=== PATIENT | male | born 1960 | race Caucasian/White ===

== ENCOUNTER → 2018-01-06 | Outpatient (CLI) | payer OTHER ==
[~2018-01-06] MED LIST: ACETAMINOPHEN500 M1 PO; ALLEGRA ALLERG180 MG PO; HYDROCODONE-APA1 TA1 PO; IBUPROFEN 200200 M1 PO; IBUPROFEN 800800 M1 PO; MYSOLINE250 M1 PO; MYSOLINE50 MG PO; PHENOBARBITAL64.8 MG PO; PRILOSEC 20 MG20 MG PO; PRIMIDONE50 MG PO
== END ==
LOC: M.RAD 10:15
DX: M81.8 Other osteoporosis without current pathological fracture (principal); M85.80 Other specified disorders of bone density and structure, unspecified site; M25.869 Other specified joint disorders, unspecified knee; G89.29 Other chronic pain; G40.909 Epilepsy, unspecified, not intractable, without status epilepticus; E66.01 Morbid (severe) obesity due to excess calories

== ENCOUNTER 2019-02-27 15:33 | Emergency (ER) | payer OTHER ==
[~2019-02-27] VITALS: Ht 175.3 cm; Wt 144.2 kg
[2019-02-27] MEDS ORDERED: ACETAMINOPHEN-1 EAC1 PO (16:51)
[2019-02-27 17:10] VITALS: BP 160/80
== END 2019-02-27 17:10 | disposition home or self-care (01) ==
LOC: M.ERS 15:33
DX: S62.336A Displaced fracture of neck of fifth metacarpal bone, right hand, initial encounter for closed fracture (principal); W22.09XA Striking against other stationary object, initial encounter; Y93.89 Activity, other specified; Y92.89 Other specified places as the place of occurrence of the external cause; Y99.8 Other external cause status

== ENCOUNTER 2019-04-30 13:51 | Emergency (ER) | payer OTHER ==
[~2019-04-30] VITALS: Ht 175.3 cm; Wt 138.8 kg
[~2019-04-30 13:51] MED LIST changes: +ACETAMINOPHEN-1 EAC1 PO; +PHENOBARBITAL60 MG PO
[2019-04-30] MEDS ORDERED: PRIMIDONE 250M250 MG PO (14:04)
[2019-04-30] MEDS ORDERED: MOBIC15 MG PO (14:04)
[2019-04-30] MEDS ORDERED: ACTONEL150 MG PO (14:05)
[2019-04-30 16:35] VITALS: BP 122/42
== END 2019-04-30 16:36 | disposition home or self-care (01) ==
LOC: M.ERS 13:51
DX: M25.572 Pain in left ankle and joints of left foot (principal); M25.562 Pain in left knee; Z79.899 Other long term (current) drug therapy

== ENCOUNTER 2019-09-14 15:47 | Inpatient (IN) | payer OTHER ==
[~2019-09-14] VITALS: Ht 182.9 cm; Wt 134.7 kg
[~2019-09-14 15:47] MED LIST changes: +ACTONEL150 MG PO; +MOBIC15 MG PO; +PRIMIDONE 250M250 MG PO
[2019-09-14 15:53] VITALS: BP 174/80
[2019-09-14 16:10] LABS: ABSOLUTE LYMPHOCYTES 1.4 thou/uL (0.8-5.3); ABSOLUTE NEUTROPHILS 3.5 thou/uL (1.6-8.1); HEMOGLOBIN 16.3 gm/dL (14.0-18.0); PLATELET COUNT* 185 thou/uL (150-400); WBC 5.6 thou/uL (4.0-11.0)
[2019-09-14 16:12] LABS: ABSOLUTE EOSINOPHILS 0.1 thou/uL (0.0-0.7); ABSOLUTE MONOCYTES 0.5 thou/uL (0.0-1.2); BASOPHILS 0.9 %; EOSINOPHILS 2.3 %; HEMATOCRIT 47.5 % (42.0-52.0); LYMPHOCYTES 25.1 %; MCH 30.2 pg (26.0-34.0); MCHC 34.2 g/dL (28.0-37.0); MCV 88.2 fL (80.0-100.0); MONOCYTES 9.6 %; MPV 9.8 fl. (7.2-11.1); NUCLEATED RBCS 0 /100WBC; POLYS 62.1 %; RBC 5.38 mil/uL (4.50-6.00); RDW-CV 13.8 % (10.5-14.5)
[2019-09-14 16:19] LABS: CALCIUM 9.6 mg/dL (8.5-10.1); CREATININE 0.9 mg/dL (0.6-1.3); POTASSIUM 3.7 mmol/L (3.5-5.1)
[2019-09-14 16:21] LABS: APTT 27.4 Seconds (25.0-31.3); INR 1.1
[2019-09-14 16:38] LABS: ALBUMIN 3.9 g/dL (3.4-5.0); CK-MB MASS 0.5 ng/mL (<0.5-3.6); MAGNESIUM 1.7 mg/dL (1.8-2.4); TOTAL BILIRUBIN 0.3 mg/dL (<0.1-1.0); TOTAL PROTEIN 8.1 g/dL (6.4-8.2)
[2019-09-14 18:26] LABS: INFLUENZA A ANTIGEN Negative (Negative); INFLUENZA B ANTIGEN Negative (Negative)
[2019-09-14 19:09] VITALS: BP 126/54
[2019-09-14 19:45] VITALS: BP 128/46
[2019-09-14] MEDS ORDERED: DICYCLOMINE HCL20 MG PO (22:00)
[2019-09-14 23:55] VITALS: BP 126/41
[2019-09-15] VITALS (7 sets, daily range): BP systolic 116–140; BP diastolic 37–61
--- NOTE | 2019-09-15 01:03 | NUR ---
ASSUMED CARE OF PT AT 2020 FROM THE ER. PT IS ALERT AND ORIENTED. NO COMPLAINTS OF PAIN. UP WITH 1 ASSIST. PT IS IN SINUS RYTHM. CARDIZEM DISCONTINUED BECAUSE PTS HEART RATE IN THE 40'S. PT IS SLEEPING QUIETLY IN BED. RESPIRATIONS ARE EVEN AND NONLABORED. WILL CONTINUE TO MONITOR PT.
[2019-09-15 05:51] LABS: ANION GAP 9 mmol/L (7-16); BUN 16 mg/dL (7-18); CALCIUM 9.4 mg/dL (8.5-10.1); CHLORIDE 106 mmol/L (98-107); CHOLESTEROL 191 mg/dL (<200); CO2 25 mmol/L (21-32); CREATININE 0.8 mg/dL (0.6-1.3); GLUCOSE 97 mg/dL (70-99); HDL CHOLESTEROL 60 mg/dL (>40); LDL CHOLESTEROL 120 mg/dL (<100); MAGNESIUM 1.8 mg/dL (1.8-2.4); POTASSIUM 3.9 mmol/L (3.5-5.1); SODIUM 140 mmol/L (136-145); TC:HDL 3.2 Ratio (Not establshd); TRIGLYCERIDE 59 mg/dL (<150); VLDL 12 mg/dL (<40)
[2019-09-15 05:57] LABS: SERUM ASSESSMENT Clear
--- NOTE | 2019-09-15 07:49 | EKG ---
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 09/15/19 0748 155 155 Florentin Wilkes MD, FACC /EPI
--- NOTE | 2019-09-15 10:59 | NUR ---
ASSUMED PT CARE AT 0800, AOX4, UP SBA, O2 SAT 90'S RA. TRACING SINUS RHYTHM/ JUWAN ON TELE. PT HAS CARDIOLOGY CONSULT. PT DENIES PAIN. PT HAVING LOOSE STOOL. PT ON IV FLUIDS. VSS, AM ASSESSMENT CHARTED, CALL LIGHT WITHIN REACH, HOURLY ROUNDING, WILL CONTINUE TO MONITOR.
[2019-09-16 00:30] VITALS: BP 128/46
[2019-09-16 04:00] VITALS: BP 122/44
[2019-09-16 04:57] LABS: CALCIUM 9.3 mg/dL (8.5-10.1); CREATININE 0.9 mg/dL (0.6-1.3); MAGNESIUM 1.8 mg/dL (1.8-2.4); POTASSIUM 3.8 mmol/L (3.5-5.1)
--- NOTE | 2019-09-16 06:21 | NUR ---
PATIENT PROGRESSING TOWARDS GOALS: PATIENT REMAINS IN SR/SB THROUGHOUT SHIFT. DENIES PAIN AND DISCOMFORT. ANITICIPATING DISCHARGE HOME TODAY. CALL LIGHT WITHIN REACH
[2019-09-16 07:30] VITALS: BP 120/50
[2019-09-16] MEDS ORDERED: FLECAINIDE ACET50 M1 PO (09:11)
[2019-09-16 10:03] VITALS: BP 133/41
--- NOTE | 2019-09-16 10:26 | NUR ---
ASSUMED PT CARE AT 0800, AOX4, UP SBA, O2 SAT 90'S RA. TRACING SINUS RHYTHM ON TELE. PT DENIES PAIN. PT FOR DISCHARGE. CARDIOLOGY OK FOR DC. PT VSS, AM ASSESSMENT CHARTED, MEDS GIVEN PER MAR, WILL CONTINUE TO MONITOR.
[2019-09-16] MEDS ORDERED: ASPIRIN325 PO (10:47)
--- NOTE | 2019-09-16 11:47 | NUR ---
DISCHARGED PLAN DISCUSSED WITH THE PT AND BROTHER. MEDICATION PACKET/SCRIPT GIVEN. REMINDED TO FOLLOW UP PCP, CARDIOLOGY. IV, TELE REMOVED. LEFT THE UNIT AT 1142 VIA WHEELCHAIR.
--- NOTE | 2019-09-16 13:35 | CON ---
[address] [address] CONSULTATION Name: MICHELET FRANCE Room: [address] IN ..#: [id number] Admission: 09/14/19 Attend Phys: Redd Villa MD Discharge: 09/16/19 Date of : 56 Report #: [id number] THIS REPORT FOR: //name// CC: Redd NOYOLA DO Joycelyn Noyola DATE OF SERVICE: 09/15/2019 CARDIOLOGY CONSULTATION HISTORY OF PRESENT ILLNESS: The patient is a 59-year-old white male who I was asked to see in the hospital today after he was noted to have an abnormal EKG. The patient is single and lives with a brother. Recently, he has had loose stools. He went to see his primary care physician yesterday and was noted to be in atrial fibrillation. He was sent over to [place]. He was placed on IV Cardizem. He converted to sinus rhythm. I was asked to see him for further evaluation and treatment. He did note a rapid heartbeat, some shortness of breath and lightheadedness. PAST MEDICAL HISTORY: Otherwise, he has had a history of encephalitis with seizures. He has had a cholecystectomy. He is mentally handicapped. MEDICATIONS: Include primidone, Mobic and Actonel. ALLERGIES: He has no known drug allergies. SOCIAL HISTORY: Nonsmoker, nondrinker. REVIEW OF SYSTEMS: He has a history of asthma. No history of stroke. No history of GI bleeding. No kidney disease. No cancer. PHYSICAL EXAMINATION: GENERAL: Revealed a large male, lying in bed, appeared in no distress. VITAL SIGNS: He had a blood pressure of 150/60, pulse is 50. He is afebrile. HEENT: He was anicteric. Conjunctivae pink. Mucous membranes are moist. CHEST: Clear to auscultation. CARDIOVASCULAR: Regular rate and rhythm. ABDOMEN: Obese. EXTREMITIES: Had no edema. SKIN: Cool and dry. NEUROLOGIC: Nonfocal. RADIOLOGICAL DATA: His ECG on admission showed what appeared to represent an atrial flutter with a right bundle branch block. Currently, his ECG shows a sinus bradycardia. His workup in the [place] [address] CONSULTATION Name: MICHELET FRANCE Room: [address]#: [id number] Admission: 09/14/19 Attend Phys: Redd Villa MD Discharge: 09/16/19 Date of : 56 Report #: [id number] cardiomegaly, mild vascular prominence. LABORATORY DATA: Sodium 140, creatinine 0.8. Liver function studies were normal. Troponin 0.06. TSH 1.8. White blood cell count 5.6 and hemoglobin 16.3. IMPRESSION AND RECOMMENDATIONS: 1. Atrial flutter. After the patient converted, he was noted to be bradycardic. I would not recommend beta pamela. At this time, I would start the patient on flecainide. I would recommend an echocardiogram. 2. History of seizures. 3. Previous history of encephalitis. 4. Obesity. 5. Mentally handicapped. <ELECTRONICALLY SIGNED> By: Florentin Wilkes MD, FACC 09/16/19 1335 0713 0746Daolivia Wilkes MD, FACC /nt
== END 2019-09-16 11:42 | disposition home or self-care (01) | DRG 309 ==
LOC: M.ERS 15:47 → M.TBA-ER 16:35 → M.2W 16:35
PROVIDERS: Family Medicine; ADMIT Internal Medicine
PROC: 5A2204Z Restoration of Cardiac Rhythm, Single (ICD-10-PCS; principal; 2019-09-16)
DX: I48.20 Chronic atrial fibrillation, unspecified (principal); Z68.41 Body mass index [BMI] 40.0-44.9, adult; B34.9 Viral infection, unspecified; I48.92 Unspecified atrial flutter; E66.01 Morbid (severe) obesity due to excess calories; M81.0 Age-related osteoporosis without current pathological fracture; E87.6 Hypokalemia; E83.42 Hypomagnesemia; G40.909 Epilepsy, unspecified, not intractable, without status epilepticus; F79 Unspecified intellectual disabilities; I34.0 Nonrheumatic mitral (valve) insufficiency; E86.9 Volume depletion, unspecified; Z79.899 Other long term (current) drug therapy; Z90.49 Acquired absence of other specified parts of digestive tract

== ENCOUNTER 2020-05-29 16:56 | Emergency (ER) | payer MEDICARE ==
[~2020-05-29] VITALS: Ht 175.3 cm; Wt 134.3 kg
[~2020-05-29 16:56] MED LIST changes: +ASPIRIN325 PO; +DICYCLOMINE HCL20 MG PO; +FLECAINIDE ACET50 M1 PO
[2020-05-29 18:27] LABS: HEMATOCRIT 43.5 % (42.0-52.0); MCH 30.9 pg (26.0-34.0); MCHC 34.6 g/dL (28.0-37.0); MCV 89.3 fL (80.0-100.0); MPV 9.1 fl. (7.2-11.1); NUCLEATED RBCS 0 /100WBC; PLATELET COUNT* 175 thou/uL (150-400); RBC 4.87 mil/uL (4.50-6.00); WBC 9.7 thou/uL (4.0-11.0)
[2020-05-29 18:28] LABS: CALCIUM 9.3 mg/dL (8.5-10.1); CREATININE 0.9 mg/dL (0.6-1.3); POTASSIUM 4.2 mmol/L (3.5-5.1)
[2020-05-29 18:41] LABS: ALBUMIN 3.7 g/dL (3.4-5.0); TOTAL BILIRUBIN 1.2 mg/dL (<0.1-1.0); TOTAL PROTEIN 7.5 g/dL (6.4-8.2)
[2020-05-29 19:27] LABS: ABSOLUTE MONOCYTES 0.9 thou/uL (0.0-1.2); ABSOLUTE NEUTROPHILS 7.9 thou/uL (1.6-8.1)
[2020-05-29 19:30] LABS: PLATELET ESTIMATE ADEQUATE
[2020-05-29 19:51] LABS: URINE BLOOD TRACE (Negative); URINE CLARITY CLEAR; URINE COLOR YELLOW; URINE GLUCOSE-RANDOM NEGATIVE (Negative); URINE KETONES 2+ (Negative); URINE LEUKOCYTES-REFLEX NEGATIVE (Negative); URINE NITRITE-REFLEX NEGATIVE (Negative); URINE PROTEIN TRACE (Negative); URINE SPECIFIC GRAVITY >= 1.030 (1.005-1.030); URINE UROBILINOGEN 0.2 E.U./dl (0.2-1.0)
[2020-05-29 19:54] LABS: ICTOTEST (BILI CONFIRMATORY) Negative (Negative); URINE BILIRUBIN 1+ (Negative)
[2020-05-29 20:40] VITALS: BP 115/89
--- NOTE | 2020-05-30 14:02 | EKG ---
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 : 1960 Requested By: Nikky Herrmann Order Number: [id number] MD: Michelet Ventura Measurements Intervals [place] Rate: 65 P: 42 IA: 179 QRS: -5 QRSD: 131 T: 31 QT: 398 QTc: 414 Interpretive Statements Sinus rhythm Ventricular trigeminy LAE, consider biatrial enlargement Right bundle branch block Left ventricular hypertrophy Artifact in lead(s) I,II,III,aVR,aVL,aVF and baseline wander in lead(s) V1 Compared to ECG 09/14/2019 15:52:37 Ventricular premature complex(es) now present Right bundle-branch block now present Atrial flutter no longer present Electronically Signed On 05-30-2020 14:02:36 CDT by Michelet Ventura [email or web address] <ELECTRONICALLY SIGNED> By: Michelet Ventura MD, [facility] 05/30/20 1402 29 29 Michelet Ventura MD, [facility] /EPI
== END 2020-05-29 21:02 | disposition home or self-care (01) ==
LOC: M.ERS 16:56
PROVIDERS: Nurse Practitioner Family
DX: S93.491A Sprain of other ligament of right ankle, initial encounter (principal); I10 Essential (primary) hypertension; Z90.49 Acquired absence of other specified parts of digestive tract; W18.39XA Other fall on same level, initial encounter; Y93.89 Activity, other specified; Y92.89 Other specified places as the place of occurrence of the external cause; Y99.8 Other external cause status

== ENCOUNTER 2020-06-06 09:26 | Observation (INO) | payer MEDICARE ==
[~2020-06-06] VITALS: Ht 175.3 cm; Wt 134.3 kg
[2020-06-06 09:29] VITALS: BP 143/58
[2020-06-06 10:26] LABS: ABSOLUTE BASOPHILS 0.1 thou/uL (0.0-0.2); ABSOLUTE EOSINOPHILS 0.2 thou/uL (0.0-0.7); ABSOLUTE LYMPHOCYTES 1.5 thou/uL (0.8-5.3); ABSOLUTE MONOCYTES 0.5 thou/uL (0.0-1.2); ABSOLUTE NEUTROPHILS 3.5 thou/uL (1.6-8.1); EOSINOPHILS 3.3 %; HEMATOCRIT 45.1 % (42.0-52.0); HEMOGLOBIN 15.2 gm/dL (14.0-18.0); LYMPHOCYTES 26.1 %; MCH 30.5 pg (26.0-34.0); MCHC 33.7 g/dL (28.0-37.0); MCV 90.5 fL (80.0-100.0); MONOCYTES 8.3 %; MPV 10.2 fl. (7.2-11.1); NUCLEATED RBCS 0 /100WBC; PLATELET COUNT* 191 thou/uL (150-400); POLYS 61.3 %; RBC 4.98 mil/uL (4.50-6.00); RDW-CV 14.2 % (10.5-14.5); WBC 5.7 thou/uL (4.0-11.0)
[2020-06-06 10:33] LABS: URINE BILIRUBIN NEGATIVE (Negative); URINE BLOOD NEGATIVE (Negative); URINE CLARITY CLEAR; URINE COLOR YELLOW; URINE GLUCOSE-RANDOM NEGATIVE (Negative); URINE KETONES NEGATIVE (Negative); URINE LEUKOCYTES-REFLEX NEGATIVE (Negative); URINE NITRITE-REFLEX NEGATIVE (Negative); URINE PROTEIN NEGATIVE (Negative); URINE SPECIFIC GRAVITY >= 1.030 (1.005-1.030); URINE UROBILINOGEN 0.2 E.U./dl (0.2-1.0)
[2020-06-06 10:35] LABS: CALCIUM 9.5 mg/dL (8.5-10.1); CREATININE 1.1 mg/dL (0.6-1.3)
[2020-06-06 10:36] LABS: APTT 24.3 Seconds (25.0-31.3); PROTIME 10.8 Seconds (9.20-11.50)
[2020-06-06 10:46] LABS: ALBUMIN 3.6 g/dL (3.4-5.0); TOTAL BILIRUBIN 0.3 mg/dL (<0.1-1.0); TOTAL PROTEIN 7.7 g/dL (6.4-8.2)
[2020-06-06 12:45] VITALS: BP 153/66
--- NOTE | 2020-06-06 16:14 | EKG ---
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 : 1960 Requested By: Norman Ortiz Order Number: [id number] MD: Jasvir Gardner Measurements Intervals [place] Rate: 54 P: 52 ME: 206 QRS: 10 QRSD: 126 T: 55 QT: 443 QTc: 420 Interpretive Statements Sinus rhythm Right bundle branch block Minimal ST elevation, inferior leads Compared to ECG 05/29/2020 18:30:33 ST (T wave) deviation now present Ventricular premature complex(es) no longer present Left ventricular hypertrophy no longer present Electronically Signed On 06-06-2020 16:14:40 CDT by Jasvir Gardner [email or web address] <ELECTRONICALLY SIGNED> By: Jasvir Gardner MD, FACC 06/06/20 1614 0943 0943 Jasvir Gardner MD, [facility] /EPI
--- NOTE | 2020-06-06 16:15 | EKG ---
[place] [address] ELECTROCARDIOGRAM REPORT Name: MICHELET FRANCE Room: [address] M.R.#: [id number] Admission: 06/06/20 Attend Phys: Brian Posada Discharge: Date of : 56 Date of Service: 06/06/20 0944 Report #: [id number] THIS REPORT FOR: //name// [facility] ED Test Date: 2020-06-06 Test Time: 09:44:27 Pat Name: MICHELET FRANCE Department: Room: [address] Gender: M Collections Attorney: KRISTIN : 1960 Requested By: Norman Ortiz Order Number: [id number] MD: Jasvir Gardner Measurements Intervals [place] Rate: 56 P: 49 UT: 195 QRS: 8 QRSD: 130 T: 55 QT: 436 QTc: 421 Interpretive Statements Sinus rhythm Right bundle branch block Minimal ST elevation, inferior leads Compared to ECG 06/06/2020 09:43:36 ST (T wave) deviation still present Electronically Signed On 06-06-2020 16:14:58 CDT by Jasvir Gardner [email or web address] <ELECTRONICALLY SIGNED> By: Jasvir Gardner MD, FACC 06/06/20 1614 0944 0944 Jasvir Gardner MD, [facility] /EPI
--- NOTE | 2020-06-06 16:43 | NUR ---
PT.ADMITTED TODAY WITH INCREASED WEAKNESS FOR ABOUT A WEEK. HE HAS A DEVELOPMENTAL DISABILITY. BROTHER,KEMAL, IS HIS GUARDIAN AND LIVES WITH HIM. NO USE OF DME. 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
[2020-06-06 16:58] VITALS: BP 145/68
--- NOTE | 2020-06-06 17:24 | NUR ---
PATIENT ARRIVED TO UNIT FROM ED AT APPROX 1300. ALERT AND OREINTED. VSS ON ROOM AIR. COMPLAINT OF PAIN RESOLVED PRIOR TO ARRIVAL TO UNIT, NO NEW COMPLAINT OF PAIN SINCE ARRIVAL. FLUIDS INFUSED ORDERED. FALL PRECAUTIONS IN PLACE. CALL LIGHT WITHIN REACH. WILL CONTINUE PLAN OF CARE.
[2020-06-06 20:33] VITALS: BP 137/49
[2020-06-07 04:01] LABS: ABSOLUTE BASOPHILS 0.1 thou/uL (0.0-0.2); ABSOLUTE EOSINOPHILS 0.2 thou/uL (0.0-0.7); ABSOLUTE LYMPHOCYTES 1.6 thou/uL (0.8-5.3); ABSOLUTE MONOCYTES 0.5 thou/uL (0.0-1.2); ABSOLUTE NEUTROPHILS 2.8 thou/uL (1.6-8.1); EOSINOPHILS 4.4 %; HEMATOCRIT 40.8 % (42.0-52.0); HEMOGLOBIN 13.6 gm/dL (14.0-18.0); LYMPHOCYTES 30.2 %; MCH 30.1 pg (26.0-34.0); MCHC 33.5 g/dL (28.0-37.0); MONOCYTES 9.6 %; MPV 10.1 fl. (7.2-11.1); NUCLEATED RBCS 0 /100WBC; PLATELET COUNT* 196 thou/uL (150-400); POLYS 54.8 %; RBC 4.53 mil/uL (4.50-6.00); RDW-CV 14.2 % (10.5-14.5); WBC 5.2 thou/uL (4.0-11.0)
[2020-06-07 04:13] LABS: CALCIUM 8.8 mg/dL (8.5-10.1); CREATININE 1.1 mg/dL (0.6-1.3)
--- NOTE | 2020-06-07 04:59 | NUR ---
PATIENT ALERT AND ORIENTED. USES URINAL AT NIGHT. ON ROOM AIR. RIGHT FOOT ELEVATED. PAIN MANAGED 01/17. 1 TAB NORCO TAKEN. ABD SERIES COMPLETED. NORMAL SALINE @ 75 AND RECEIVED ALL MEDS SCHEDULED. WILL CONTINUE TO FOLLOW PLAN OF CARE.
[2020-06-07 08:13] VITALS: BP 183/69
[2020-06-07 16:00] VITALS: BP 166/64
--- NOTE | 2020-06-07 17:54 | NUR ---
PATIENT ALERT AND OREINTED. VSS ON ROOM AIR. VSSON ROOM AIR. COMPLAINT OF PAIN ADDRESSED WITH IV FENTANYL AND ORAL NORCO. FLUIDS INFUSED ORDERED. PATIENT SEEN BY THERAPIES TODAY FOR EVAL. UP WITH ASSIST TO BEDSIDE COMMODE. NO OTHER COMPLEINTS THIS SHIFT. FALL PRECAUTIONS IN PLACE. CALL LIGHT IN REACH. WILL CONTINUE PLAN OF CARE.
[2020-06-07 19:23] VITALS: BP 143/52
[2020-06-08 03:36] LABS: ABSOLUTE BASOPHILS 0.1 thou/uL (0.0-0.2); ABSOLUTE EOSINOPHILS 0.3 thou/uL (0.0-0.7); ABSOLUTE LYMPHOCYTES 2.1 thou/uL (0.8-5.3); ABSOLUTE MONOCYTES 0.5 thou/uL (0.0-1.2); ABSOLUTE NEUTROPHILS 2.8 thou/uL (1.6-8.1); BASOPHILS 1.1 %; EOSINOPHILS 4.4 %; HEMATOCRIT 39.3 % (42.0-52.0); HEMOGLOBIN 13.4 gm/dL (14.0-18.0); LYMPHOCYTES 36.9 %; MCH 30.5 pg (26.0-34.0); MCV 89.6 fL (80.0-100.0); MONOCYTES 9.5 %; MPV 10.2 fl. (7.2-11.1); NUCLEATED RBCS 0 /100WBC; PLATELET COUNT* 191 thou/uL (150-400); POLYS 48.1 %; RBC 4.39 mil/uL (4.50-6.00); RDW-CV 14.2 % (10.5-14.5); WBC 5.8 thou/uL (4.0-11.0)
[2020-06-08 03:53] LABS: CALCIUM 8.6 mg/dL (8.5-10.1); POTASSIUM 4.3 mmol/L (3.5-5.1)
--- NOTE | 2020-06-08 04:19 | NUR ---
PT USES URINAL AT BED. DID NOT GET UP THIS SHIFT. PAIN WAS INCREASED THIS EVENING, RECEIVED NORCO AND TYLENOL FOR PAIN. NORCO 0315 AND TYLENOL 0415. HE DID NOT WANT TO MOVE IN BED TRIED TO REPOSITION FOR COMFORT. HE IS ALERT AND ORIENTED ON ROOM AIR. HE WAS ABLE TO SLEEP MOST OF THE NIGHT. KEPT RIGHT FOOT ELEVATED. WILL CONTINUE TO MONITOR.
[2020-06-08 07:50] VITALS: BP 151/56
[2020-06-08] MEDS ORDERED: NORCO 5-325 TA1 EAC2 PO (10:09)
[2020-06-08 11:39] VITALS: BP 151/56
--- NOTE | 2020-06-08 14:33 | NUR ---
PATIENT ALERT AND ORIENTED X4. VSS ON ROOM AIR. COMPLAINT OF PAIN MANAGED WITH ORAL NORCO. PATIENT DISCHARGED AT 1415 WITH ALL PERSONAL BELONGINGS, PRESCRIPTION AND DICHARGE INFORMATION. PATIENTS BROTHER PICKED HIM UP A PICKUP TRUCK, PATIENT REQUIRED MAX ASSIST TO LIFT UP AND INTO THE TRUCK.
== END 2020-06-08 14:15 | disposition home or self-care (01) ==
LOC: M.ERS 09:26 → M.TBA-ER 11:03 → M.ORTHSURG 13:23
PROVIDERS: Family Medicine; ADMIT Internal Medicine; ATTEND Internal Medicine
DX: S92.331A Displaced fracture of third metatarsal bone, right foot, initial encounter for closed fracture (principal); S92.341A Displaced fracture of fourth metatarsal bone, right foot, initial encounter for closed fracture; M17.0 Bilateral primary osteoarthritis of knee; E66.01 Morbid (severe) obesity due to excess calories; N17.9 Acute kidney failure, unspecified; G40.909 Epilepsy, unspecified, not intractable, without status epilepticus; K56.50 Intestinal adhesions [bands], unspecified as to partial versus complete obstruction; R53.1 Weakness; E86.0 Dehydration; I10 Essential (primary) hypertension; M81.0 Age-related osteoporosis without current pathological fracture; R00.1 Bradycardia, unspecified; G93.40 Encephalopathy, unspecified; Z68.41 Body mass index [BMI] 40.0-44.9, adult; Z79.82 Long term (current) use of aspirin; Z79.899 Other long term (current) drug therapy; Z20.828 Contact with and (suspected) exposure to other viral communicable diseases; W19.XXXA Unspecified fall, initial encounter; Y93.89 Activity, other specified; Y92.89 Other specified places as the place of occurrence of the external cause

== ENCOUNTER 2020-07-21 12:49 | Emergency (ER) | payer MEDICARE ==
[~2020-07-21] VITALS: Ht 182.9 cm; Wt 117.0 kg
[~2020-07-21 12:49] MED LIST changes: +NORCO 5-325 TA1 EAC2 PO
[2020-07-21 15:12] VITALS: BP 111/48
== END 2020-07-21 15:16 | disposition home or self-care (01) ==
LOC: M.ERS 12:49
DX: S86.912A Strain of unspecified muscle(s) and tendon(s) at lower leg level, left leg, initial encounter (principal); M25.561 Pain in right knee; E66.01 Morbid (severe) obesity due to excess calories; I10 Essential (primary) hypertension; M81.0 Age-related osteoporosis without current pathological fracture; M19.90 Unspecified osteoarthritis, unspecified site; Z79.899 Other long term (current) drug therapy; Z79.82 Long term (current) use of aspirin; Z90.49 Acquired absence of other specified parts of digestive tract; X58.XXXA Exposure to other specified factors, initial encounter; Y93.89 Activity, other specified; Y92.89 Other specified places as the place of occurrence of the external cause; Y99.8 Other external cause status

== ENCOUNTER 2021-01-15 14:05 | Emergency (ER) | payer MEDICARE ==
[~2021-01-15] VITALS: Ht 182.9 cm; Wt 126.5 kg
[2021-01-15 15:31] VITALS: BP 146/64
== END 2021-01-15 15:33 | disposition home or self-care (01) ==
LOC: M.ERS 14:05
DX: S93.402A Sprain of unspecified ligament of left ankle, initial encounter (principal); M79.675 Pain in left toe(s); I10 Essential (primary) hypertension; Z81.0 Family history of intellectual disabilities; Z90.49 Acquired absence of other specified parts of digestive tract; Z98.890 Other specified postprocedural states; Z79.899 Other long term (current) drug therapy; Z79.82 Long term (current) use of aspirin; X50.1XXA Overexertion from prolonged static or awkward postures, initial encounter; Y93.89 Activity, other specified; Y92.89 Other specified places as the place of occurrence of the external cause; Y99.8 Other external cause status

== ENCOUNTER → 2021-08-13 | Outpatient (CLI) | payer MEDICARE ==
[2021-08-13] VITALS (11 sets, daily range): BP systolic 81–143; BP diastolic 40–84
[~2021-08-13] MED LIST changes: +D3-501250 MCG PO; +FLECAINIDE ACE150 MG PO; +FOSAMAX 70 MG T70 MG PO; +TOPROL XL25 MG PO
[2021-08-13 11:42] LABS: HEMATOCRIT 41.7 % (42.0-52.0); HEMOGLOBIN 13.9 gm/dL (14.0-18.0); MCH 29.6 pg (26.0-34.0); MCHC 33.3 g/dL (28.0-37.0); MCV 88.9 fL (80.0-100.0); MPV 8.8 fl. (7.2-11.1); RBC 4.69 mil/uL (4.50-6.00); RDW-CV 14.4 % (10.5-14.5); WBC 4.9 thou/uL (4.0-11.0)
[2021-08-13 11:49] LABS: APTT 26.8 Seconds (25.0-31.3); INR 1.1; PROTIME 10.9 Seconds (9.20-11.50)
[2021-08-13 11:51] LABS: ALBUMIN 3.2 g/dL (3.4-5.0); CALCIUM 9.2 mg/dL (8.5-10.1); CREATININE 1.1 mg/dL (0.6-1.3); POTASSIUM 4.3 mmol/L (3.5-5.1); TOTAL BILIRUBIN 0.4 mg/dL (<0.1-1.0); TOTAL PROTEIN 6.8 g/dL (6.4-8.2)
--- NOTE | 2021-08-13 13:36 | TEE ---
[place] [address] TRANSESOPHAGEAL ECHOCARDIOGRAM Name: MICHELET FRANCE Room: [facility]#: [id number] Admission: 08/13/21 Attend Phys: Regina Canas RN Discharge: Date of : 56 Date of Service: 08/13/21 1336 Report #: [id number] THIS REPORT FOR: cc: Joycelyn Mathew Linda J. DO Holkins, John M. MD [facility] ~ APPROVED REPORT Study performed: 08/13/2021 12:06:29 EXAM: Transesophageal Echocardiogram Patient Location: Out-Patient Room #: CL Status: routine HR: 83 bpm BP: 109/57 mmHg Rhythm: Atrial Fibrillation Indications Atrial Fibrillation Echo Enhancing Agent Indication: Rule out Shunt Agent(s) / Amount(s) Used: Agitated Saline 10 cc Procedure After obtaining informed consent, patient underwent transesophageal echo in the [employer]. Type of Sedation : Conscious Sedation Sedation was administered by Marlee Corona RN. Sedation start time: 1210 Case end Time: 1220 Sedation was achieved intravenously with: Versed (4) Fentanyl (100) Transesophageal probe was inserted and advanced into esophagus without difficulty by Jasvir Gardner MD, FACC. Echo enhancement indication: R/O Septal defect. Echo enhancement agent administered: Agitated Saline The NIKOLAI was performed without complications. Synchronized Cardioversion acheived with 300 Joules after 1 attempt(s). Throughout the procedure, the blood pressure, pulse oximetry, cardiac rhythm, and rate were monitored. The patient tolerated the procedure without adverse effects. Recovery from conscious sedation was uneventful [place] [address] TRANSESOPHAGEAL ECHOCARDIOGRAM Name: MICHELET FRANCE Room: [facility]#: [id number] Admission: 08/13/21 Attend Phys: Regina Canas RN Discharge: Date of : 56 Date of Service: 08/13/21 1336 Report #: [id number]. Left Ventricle The left ventricle is normal size. There is normal LV segmental wall motion. There is normal left ventricular wall thickness. Left ventricular systolic function is normal. LVEF is 55-60%. Right Ventricle The right ventricle is normal size. The right ventricular systolic function is normal. Atria The left atrium size is normal. No thrombus is visualized in the left atrium or appendage. The interatrial septum is intact with no evidence for an atrial septal defect. The right atrium size is normal. Aortic Valve The aortic valve is normal in structure. No aortic regurgitation is present. There is no aortic valvular stenosis. Mitral Valve The mitral valve is normal in structure. Trace mitral regurgitation. No evidence of mitral valve stenosis. Tricuspid Valve The tricuspid valve is normal in structure. Trace tricuspid regurgitation. Pulmonic Valve The pulmonary valve is normal in structure. There is no pulmonic valvular regurgitation. Great Vessels The aortic root is normal in size. Pericardium There is no pericardial effusion. <Conclusion> There is normal left ventricular wall thickness. Left ventricular systolic function is normal. LVEF is 55-60%. The interatrial septum is intact with no evidence for an atrial [place] [address] TRANSESOPHAGEAL ECHOCARDIOGRAM Name: MICHELET FRANCE Room: [facility]#: [id number] Admission: 08/13/21 Attend Phys: Regina Canas RN Discharge: Date of : 56 Date of Service: 08/13/211335 Report #: [id number] The left atrium size is normal. No thrombus is visualized in the left atrium or appendage. <ELECTRONICALLY SIGNED> By: Michelet Ventura MD, FACC 08/13/211335 35 35 Michelet Ventura MD, FACC /INF
== END | disposition home or self-care (01) ==
LOC: M.CL 10:09
PROVIDERS: Internal Medicine Cardiovascular Disease; ATTEND Registered Nurse
DX: I48.91 Unspecified atrial fibrillation (principal); I08.1 Rheumatic disorders of both mitral and tricuspid valves; I48.92 Unspecified atrial flutter; Z98.890 Other specified postprocedural states; Z79.899 Other long term (current) drug therapy; Z79.01 Long term (current) use of anticoagulants; Z79.82 Long term (current) use of aspirin